=== PATIENT | female | born 1945 | race Caucasian/White ===

== ENCOUNTER 2022-07-23 09:15 | Outpatient (CLI) | payer MEDICARE, SELFPAY ==
[2022-07-23 13:49] LABS: Albumin* 4.1 g/dL (3.3-5.0); Chloride* 107 mmol/L (96-114); Sodium* 140 mmol/L (135-149)
[2022-07-23 13:50] LABS: Potassium* 4.9 mmol/L (3.6-5.1)
[2022-07-23 13:52] LABS: Alanine Aminotransferase* 23 U/L (4-35); Alkaline Phosphatase* 73 U/L (40-150); Aspartate Amino Transferase* 25 U/L (12-35); Bilirubin Total* 0.7 mg/dL (0.1-1.5); Blood Urea Nitrogen* 24 mg/dL (7-30); Calcium* 9.5 mg/dL (8.4-10.6); Carbon Dioxide* 26 mmol/L (20-32); Cholesterol* 126 mg/dL (90-199); Creatinine* 0.8 mg/dL (0.5-1.5); Estimated Glomerular Filt Rate 75 ml/min; Glucose* 110 mg/dL (60-115); Total Protein* 6.8 g/dL (6.0-8.3); Triglycerides* 82 mg/dL (40-149)
[2022-07-23 13:53] LABS: HDL Cholesterol* 49 mg/dL (>=50); LDL Cholesterol Calculated 61 mg/dL (<100)
== END 2022-07-23 09:16 | disposition home or self-care (01) ==
PROVIDERS: PCP Physician Assistant Medical; Visit Provider Physician Assistant Medical
DX: E78.2 Mixed hyperlipidemia (principal); E11.9 Type 2 diabetes mellitus without complications; I10 Essential (primary) hypertension
CPT/HCPCS: 80053; 80061

== ENCOUNTER 2023-12-30 13:22 | Outpatient (CLI) | payer MEDICARE, SELFPAY | END 2023-12-30 13:23 | disposition home or self-care (01) | LOC: NFLDREF 01-07 14:44 | PROVIDERS: PCP Physician Assistant Medical; Referring Provider Physician Assistant Medical; Visit Provider Physician Assistant Medical | DX: I10 Essential (primary) hypertension (principal); E78.2 Mixed hyperlipidemia | CPT/HCPCS: 80053; 80061 ==

== ENCOUNTER 2024-05-14 12:56 | Outpatient (CLI) | payer MEDICARE, SELFPAY ==
[2024-05-14 14:05] LABS: Lab Add On Test New Spec Needed
== END 2024-05-14 12:57 | disposition home or self-care (01) ==
PROVIDERS: PCP Physician Assistant Medical; Visit Provider Family Medicine
DX: R51.9 Headache, unspecified (principal); D64.9 Anemia, unspecified; E53.8 Deficiency of other specified B group vitamins; E11.9 Type 2 diabetes mellitus without complications; E83.42 Hypomagnesemia; I10 Essential (primary) hypertension; E87.5 Hyperkalemia
CPT/HCPCS: 82607; 83735